=== PATIENT | female | born 1975 | race Caucasian/White ===

== ENCOUNTER → 2018-05-31 | Outpatient (CLI) | payer OTHER ==
--- NOTE | 2018-05-31 15:21 | Diagnostic Imaging Report ---
TECHNIQUE: Transabdominal and transvaginal ultrasound imaging of the pelvis was performed, transvaginal images were medically necessary to further assess the endometrial. Color Doppler evaluation was utilized to supplement the evaluation. HISTORY: Pelvic pain, abnormal bleeding, last menstrual period May 03, 2018, beta hCG level is not available COMPARISON: None DISCUSSION: UTERUS: The uterus measures 11 cm x 6 cm x 8 cm. The endometrial echocomplex and canal measures up to 2.4 with predominant central hypoechoic heterogeneity, most notably near the fundus with lobulated margins. OVARIES/ADNEXA: The right ovary measures 4.3 cm x 3 cm x 2.8 cm. Anechoic focus measures 2.1 x 2 x 1 point centimeters. The left ovary measures 3 cm x 1.6 cm x 2.1 cm. Nonspecific subtle iso to hyperechoic area measures 0.9 x 0.9 x 0.9 cm. PELVIS: No free fluid. IMPRESSION: Nonspecific heterogeneous, hypoechoic endometrial or submucosal focus near the fundus, the differential considerations include evolving products of conception (recommend correlation with beta hCG levels) and a degenerating submucosal fibroid. If the beta-hCG is normal, a follow-up nonemergent MRI of the pelvis with and without contrast may be helpful in further evaluation. Signed by: Dr. Marek Green D.O., M.M.M. on 05/31/2018 3:18 PM
== END ==
LOC: US 11:52
PROVIDERS: ATTEND Specialist
DX: R10.2 Pelvic and perineal pain (principal); N93.8 Other specified abnormal uterine and vaginal bleeding
CPT/HCPCS: 76830

== ENCOUNTER → 2018-06-05 | Outpatient (CLI) | payer OTHER ==
[~2018-06-05] MED LIST: GADOBENATE DIMEGLUMINE 1 ML IV ONE
--- NOTE | 2018-06-06 09:25 | Diagnostic Imaging Report ---
EXAM: MRI Pelvis WITHOUT and WITH Contrast INDICATION: ^ABN UTERINE VAGINAL BLEEDING COMPARISON: Pelvic ultrasound 05/31/2018 TECHNIQUE: Multiplanar and multisequence imaging was performed of the pelvis from below the inferior poles of the kidneys to the lesser trochanters without and with contrast. T1-weighted, T2-weighted images, T1-weighted in and [id number], and Diffusion weighted images. Dynamic, post gadolinium T1-weighted spoiled gradient echo scans. Uterine protocol is performed. IV Contrast: 13 mL of MultiHance gadolinium Oral Contrast: None Medications: None COMPLICATIONS: None FINDINGS: UTERUS: The uterus measures 10.5 x 6.4 x 6.8 cm. No uterine masses. Junctional Zone: The junctional zone is diffusely thickened and heterogeneous with irregular contours especially on the posterior aspect measuring up to 1.8 cm (series 4 image 14). However, on postcontrast there is irregular hypoenhancement that extends to the posterior serosa and with possible extra serosal extension. This posterior myometrial area measures 4.8 x 4.0 cm on postcontrast sagittal images series 9 image 58). There is also similar appearance in the anterior myometrium measuring 1.0 x 2.0 cm (series 9 image 58), which involves less than 50% myometrial depth. Endometrium: Endometrial canal is mildly distended fluid aspiration in the fundus measuring up to 0.8 cm. Lower uterine segment is relatively decompressed. CERVIX: Nabothian cysts. Very short cervix. OVARIES/ADNEXA: Left ovary is grossly unremarkable. There is a 2.2 x 2.5 x 2.7 cm T1 hyperintense and T2 hyperintense lesion in the right adnexa, consistent with an endometrioma. BLADDER: Unremarkable. GI TRACT: No abnormal distention, wall thickening, or evidence of bowel obstruction. Appendix is not clearly identified. There is however no fat stranding or adenopathy in the right lower quadrant to suggest appendicitis. RECTUM: Rectum and mesorectum are unremarkable. LYMPH NODES: No lymphadenopathy. VESSELS: Unremarkable. PERITONEUM / RETROPERITONEUM: Mild free fluid in the cul-de-sac. The free fluid is mildly T1 hyperintense, suggesting of hemorrhagic products. BONES: Unremarkable. SOFT TISSUES: Unremarkable. IMPRESSION: 1. 2.7 cm right ovarian/adnexal endometrioma. 2. T1 hyperintense free fluid in the cul-de-sac is suggestive of hemorrhagic products. This raises the possibility for endometriosis. 3. Uterus is globular in appearance with indistinct junctional zone, consistent with diffuse adenomyosis. However, on post contrast images this extends all the way to the posterior serosa with questionable extraserosal extension. This is atypical for diffuse adenomyosis. Especially with findings of a very short cervix, this is concerning for a lower endometrial versus cervical malignancy. Recommend surgical consultation. 4. Mild fluid trapped in the endometrial canal near the fundus. This raises the possibility of cervical stenosis or mass. Signed by: Dr. Alexis Moore M.D. on 06/06/2018 9:22 AM
== END ==
LOC: MRI 10:10
PROVIDERS: ATTEND Specialist
DX: N93.8 Other specified abnormal uterine and vaginal bleeding (principal)
CPT/HCPCS: 72197